=== PATIENT | female | born 1990 ===

== ENCOUNTER 2017-03-15 08:27 | Inpatient (IN) | payer MEDICAID, SELFPAY ==
[2017-03-15 08:59] VITALS: BMI 31.2
[2017-03-15] MEDS: Lactated Ringer's 1,000 ML IV SCH ×2 (09:15→10:15)
[2017-03-15] MEDS ORDERED: Lactated Ringer's 1,000 ML IV SCH (09:15)
[2017-03-15 09:32] LABS: BASO # 0.1 K/uL (0.0-0.2); BASO % 0.5 % (0.0-2.0); EOS # 0.1 K/uL (0.0-0.7); EOS % 0.9 % (0.0-4.0); HEMOGLOBIN 10.1 g/dL (12.0-16.0); LYMPH # 2.1 K/uL (1.0-4.3); MEAN CELL VOLUME 76.3 fl (81.0-99.0); MEAN CORPUSCULAR HEMOGLOBIN 24.5 pg (27.0-31.0); MEAN CORPUSCULAR HGB CONC 32.1 g/dL (33.0-37.0); MONO # 0.6 K/uL (0.0-0.8); MONO % 5.5 % (0.0-10.0); NEUT # 8.6 K/uL (1.8-7.0); NEUT % 75.1 % (50.0-75.0); RBC 4.11 Mil/uL (3.80-5.20); RED CELL DISTRIBUTION WIDTH 17.2 % (11.5-14.5); WHITE BLOOD COUNT 11.5 K/uL (4.8-10.8)
[2017-03-15] MEDS ORDERED: Oxytocin 30 UNITS in Sodium Chloride 0.9% 500 ML IV ONE (10:15)
[2017-03-15] MEDS ORDERED: Fentanyl/Bupivacaine HCl 250 ML EPI ONE ×2 (10:23→11:30)
[2017-03-15] MEDS ORDERED: Lidocaine 1% Inj (20ml) ONE (12:10)
[2017-03-15] MEDS ORDERED: Benzocaine/Menthol SPRAY TOP PRN ×2 (13:59→16:22)
--- NOTE | 2017-03-15 13:59 | OBDS ---
DELIVERY PERSONNEL Delivery Doctor: Odalys Posada MD Log Snaker: MBTammy/[email or web address]/[id number] Anesthesiologist: Dr Cr/Dr Mcclure Resident: Dr Sahni MATERNAL INFORMATION Delivery Anesthesia: Epidural Medications in Delivery: Pitocin 30 units in 0.9NS initially at 6 mu during labor and at Estimated Blood Loss (ml): 200 Placenta Cultured: No Maternal Complications: None Provider Comments: I was present at the delivery and I agree with the residents note. LABOR SUMMARY EDC: 03/08/2017 00:00 No. Babies in Womb: 1 LABOR INFORMATION Onset of Labor: 03/15/2017 10:17 Complete Dilatation: 03/15/2017 12:30 STAGES OF LABOR Stage 1 hrs: 2 Stage 1 min: 13 Stage 2 hrs: -167 Stage 2 min: -15 Stage 3 hrs: 168 Stage 3 min: 5 Total Time in Labor hrs: 3 Total Time in Labor min: 3 VAGINAL DELIVERY Laceration Extension: Second Degree Laceration Type: Perineal Laceration Repair: Yes Initial Vag Sponge Count: laps=5 with ring /1 without ring Final Vag Sponge Count: laps=5 with ring and 1 without ring Initial Vag Sharps Count: 3 Final Vag Sharps Count: 3 Sharps Count Correct: Yes Count Comment: correct and acknowledge BABY A INFORMATION Delivery Date/Time: 03/08/2017 13:15 Method of Delivery: Vaginal Born in Route : No : N/A Forceps: N/A Vacuum Extraction: N/A Shoulder Dystocia : No SHOULDER DYSTOCIA BABY A Infant Delivery Date/Time: 03/08/2017 13:15 PRESENTATION/POSITION BABY A Presentation: Cephalic Cephalic Presentation: Vertex Breech Presentation: N/A PLACENTA INFORMATION BABY A Placenta Delivery Time : 03/15/2017 13:20 Placenta Method of Delivery: Spontaneous Placenta Status: Delivered SCORES BABY A Heart Rate 1 min: >100 bpm Resp Effort 1 min: Good Cry Reflex Irritability 1 min: Cough or Sneeze or Pulls Away Muscle Tone 1 min: Active Motion Color 1 min: Body Victoria Vera, Extremities Blue Resuscitation Effort 1 min: Tactile Stimulation SCORE 1 MIN: 9 Heart Rate 5 min: >100 bpm Resp Effort 5 min: Good Cry Reflex Irritability 5 min: Cough or Sneeze or Pulls Away Muscle Tone 5 min: Active Motion Color 5 min: Body Victoria Vera, Extremities Blue Resuscitation Effort 5 min: N/A SCORE 5 MIN: 9 INFANT INFORMATION BABY A Gestational Age at Delivery: 41.0 Gestational Status: Post-term Outcome : Liveborn Infant Condition : Stable Sex: Female IDENTIFICATION/MEDS BABY A WEIGHT/LENGTH BABY A Infant Birthweight (gms): 3885 Weight (lb): 8 Weight (oz): 9 Length Inches: 21.50 Infant Length cms: 54.6 CORD INFORMATION BABY A No. Cord Vessels: 3 Nuchal Cord : N/A Nuchal Cord Other: n/a True Knot: n/a Cord pH Baby Arterial: n/a Infant Cord pH Baby Venous: n/a Cord Blood Taken: Yes Banking/Donate Info: n/a Suction: Mouth; Nose; Pharynx ASSESSMENT BABY A Infant Complications: None Physical Findings at Delivery: Within Normal Limits Infant Respirations: Appears Normal Planning Manager/ALS Called : No Care By: Konstantin/Zachary then Dr Gonzalez at 12:30 Transferred To: Remains with Mother
[2017-03-15] MEDS ORDERED: Influenza Vaccine 18yr & older 0.5 ML/45 MCG SYR IM ONE (17:57)
[2017-03-16 06:58] LABS: HEMOGLOBIN 7.4 g/dL (12.0-16.0); MEAN CELL VOLUME 76.8 fl (81.0-99.0); MEAN CORPUSCULAR HEMOGLOBIN 24.4 pg (27.0-31.0); MEAN CORPUSCULAR HGB CONC 31.8 g/dL (33.0-37.0); RBC 3.05 Mil/uL (3.80-5.20); RED CELL DISTRIBUTION WIDTH 16.8 % (11.5-14.5); WHITE BLOOD COUNT 14.3 K/uL (4.8-10.8)
[2017-03-17 06:40] LABS: BASO % 0.4 % (0.0-2.0); EOS # 0.2 K/uL (0.0-0.7); EOS % 2.2 % (0.0-4.0); HEMOGLOBIN 7.5 g/dL (12.0-16.0); LYMPH # 3.5 K/uL (1.0-4.3); LYMPH % 33.8 % (20.0-40.0); MEAN CELL VOLUME 77.2 fl (81.0-99.0); MEAN CORPUSCULAR HEMOGLOBIN 25.1 pg (27.0-31.0); MEAN CORPUSCULAR HGB CONC 32.5 g/dL (33.0-37.0); MEAN PLATELET VOLUME 8.2 fl (7.2-11.7); MONO # 0.8 K/uL (0.0-0.8); NEUT # 5.8 K/uL (1.8-7.0); NEUT % 55.6 % (50.0-75.0); RBC 2.99 Mil/uL (3.80-5.20); RED CELL DISTRIBUTION WIDTH 17.3 % (11.5-14.5); WHITE BLOOD COUNT 10.4 K/uL (4.8-10.8)
--- NOTE | 2017-03-17 10:19 | OBPPN ---
Datetime: 03/17/2017 06:16 PP Pain Prov: Within normal limits PP Nausea Prov: Denies PP Flatus Prov: Yes PP BM Prov: Yes PP Breasts Prov: Not Done PP Heart Prov: Normal PP Lungs Prov: Normal PP Abdomen/Uterus Prov: Normal PP Lochia Prov: Normal PP Vulva/Perineum Prov: Not Done PP CVA Tenderness Prov: Not Done PP Extremities Prov: Normal PP C/S Incision Prov: Not Applicable PP Progress Prov: Normal PP Impression Prov: Normal progression PP Plan Prov: Discharge PP Progress Note Prov: S: 27 yo s/p NVD. Pt. is seen and examined at bedside this morning. N o overnight events. Pt reports occasional abdominal pain, but well controlled with pain meds. Pt is a mbulating without any difficulties. Breast/bottle feeding baby. Tolerating PO diet. Lochia is similar to light menses in volume. Voiding freely, +BM. Denies fever/chills, diarrhea, nausea/vomiting, ches t pain, dyspnea, and dizziness. VS: stable Gen: NAD Cardio: s1s2, no m/r/g Resp: clear breath sounds b/l Abdomen: BS+, NT, Uterus is firm and at the level of the umbilicus. EXT: No edema, calves nontender Neuro/Psych: AAOx3, no grossly focal deficit, preserved affect and mood. A/P: 27 yo s/p NVD. Pt remains afebrile, tolerating pain with medication, doing well on PP D 2. OOB with caution. SCDs for DVT prophylaxis, pt ambulating Ibuprofen 600mg for pain. Colace 100mg PO BID for constipation. Iron 325mg PO TID for anemia Encourage . PP CBC: 7.4/23.4 Discharge today. YBecerra PGY [address] Montero: Patient evaluated independently and I agree with the above. Patient for dis charge, discharge instructions reviewed IP PP Procedures: None Vital Signs Provider PP: Reviewed; Within Normal Limits
--- NOTE | 2017-03-17 10:19 | OBDCSUM ---
Datetime: 03/17/2017 06:18 Discharged to, Provider: Home Follow up at, Provider: Dr Willis Disch Instr Activity: Normal activity Disch Instr Diet: Regular Discharge Instructions, Provider: Routine instructions given Discharge Diagnosis, Provider: Term Delivered Discharge Time: 03/17/2017 10:00 Follow up in weeks, Provider: 6 weeks Disch Referrals: None Contraception discussed, Prov: Yes Disch Activity Restrictions: No lifting; Minimize walking; Minimize stair-climbing; No sexual activi ty; Nothing in vagina - [place], tampons, douche Discharge Comment, Provider: DOA: 03/15/2017 EGA: 41.0 weeks Diagnosis: PRisk factors: none Summary of : L_D summary: DOL: 03/15/2017 at 13:15 NB: F : 9/9 Weight: 3885 g PP summary: No serious complications during PP. Lochia= menses, mild pain, controlled with medications Rubella immune Blood type: O+ CBC pp: 7.4/23.4 Discharge Date: 03/17/2017 at 10 am Discharge Instructions: -encourage -Ibuprofen for pain -Colace for constipation -Iron for anemia. -Ambulate as tolerated -f/u NB visit and PP visit Contraception after Delivery: Not Planning to Use
[2017-03-17 15:57] VITALS: BP 123/68; PULSE 101; RESP 20; TEMP 98.1; O2SAT 99
== END 2017-03-17 11:35 | disposition home or self-care (01) | DRG 775 ==
LOC: H.EROB2 08:27 → H.L&D 08:49 → H.OB/GYN 16:00
PROVIDERS: ADMIT Obstetrics & Gynecology Gynecology; ATTEND Obstetrics & Gynecology Gynecology
PROC: 10E0XZZ Delivery of Products of Conception, External Approach (ICD-10-PCS; principal; 2017-03-15)
PROC: 0KQM0ZZ Repair Perineum Muscle, Open Approach (ICD-10-PCS; 2017-03-15)
PROC: 4A1HXCZ Monitoring of Products of Conception, Cardiac Rate, External Approach (ICD-10-PCS; 2017-03-15)
DX: O48.0 Post-term pregnancy (principal); O70.1 Second degree perineal laceration during delivery; Z37.0 Single live birth; Z3A.41 41 weeks gestation of pregnancy

== ENCOUNTER 2017-12-12 19:21 | Emergency (ER) | payer SELFPAY ==
[2017-12-12 19:22] VITALS: BMI 31.2
[2017-12-12 20:23] VITALS: RESP 16; TEMP 98.3; O2SAT 99
--- NOTE | 2017-12-12 21:04 | ED PDOC ---
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 Patient is also complaining of nausea and chills but no fever. She states she vomited 3 times last night and 2 times today. Denies getting a flu shot. PMD: none Past Medical History Reviewed: Historical Data, Nursing Documentation, Vital Signs Vital Signs: Last Vital Signs Temp 98.3 F 12/12/17 20:20 Pulse 96 H 12/12/17 20:20 Resp 16 12/12/17 20:20 BP 114/72 12/12/17 20:20 Pulse Ox 99 12/12/17 20:20 - Medical History PMH: No Chronic Diseases Denies: Depression, Diabetes, HTN - Surgical History Surgical History: No Surg Hx - Family History Family History: States: Unknown Family Hx - Social History Current smoker - smoking cessation education provided: No Alcohol: None Drugs: Denies - Immunization History Hx Tetanus Toxoid Vaccination: No Hx Influenza Vaccination: No Hx Pneumococcal Vaccination: No - Home Medications Home Medications: Ambulatory Orders Medication Instructions Recorded No Known Home Med 08/11/14 - Allergies Allergies/Adverse Reactions: Allergies Allergy/AdvReac Type Severity Reaction Status Date / Time No Known Allergies Allergy Verified 12/12/17 20:20 Review of Systems ROS Statement: Except As Marked, All Systems Reviewed And Found Negative Constitutional: Positive for: Chills. Negative for: Fever Gastrointestinal: Positive for: Nausea, Vomiting Musculoskeletal: Positive for: Leg Pain, Other (Generalized body pain) Neurological: Positive for: Headache, Dizziness Physical Exam - Reviewed Nursing Documentation Reviewed: Yes Vital Signs Reviewed: Yes - Physical Exam Appears: Positive for: Non-toxic, No Acute Distress Head Exam: Positive for: ATRAUMATIC, NORMAL INSPECTION, NORMOCEPHALIC Skin: Positive for: Normal Color, Warm, Dry. Negative for: Rash Eye Exam: Positive for: EOMI, Normal appearance, PERRL ENT: Positive for: Normal ENT Inspection Neck: Positive for: Normal, Painless ROM, Supple. Negative for: Decreased ROM Cardiovascular/Chest: Positive for: Regular Rate, Rhythm. Negative for: Murmur Respiratory: Positive for: Normal Breath Sounds. Negative for: Decreased Breath Sounds, Wheezing, Respiratory Distress Gastrointestinal/Abdominal: Positive for: Normal Exam, Soft. Negative for: Tenderness, Guarding, Rebound Back: Positive for: Normal Inspection. Negative for: L CVA Tenderness, R CVA Tenderness Extremity: Positive for: Normal ROM. Negative for: Tenderness, Pedal Edema, Deformity Neurologic/Psych: Positive for: Alert, Oriented (x3). Negative for: Motor/Sensory Deficits - Laboratory Results Result Diagrams: 12/12/17 22:10 12/12/17 22:10 - ECG O2 Sat by Pulse Oximetry: 99 (RA) Pulse Ox Interpretation: Normal Medical Decision Making Medical Decision Making: Initial Impression: Generalized body pain, vomiting, and dizziness Initial Plan: CMP ED urine dipstick CBC Sodium chloride 1000mL iV Pepcid 20mg IV Zofran 4 mg IV Reevaluation Patient has elevated WBC and CT ordered. Time: 58 CT SCAN OF THE BRAIN WITHOUT IV CONTRAST CLINICAL INDICATION: Headache. TECHNIQUE: Axial and reformatted sagittal and coronal images of the brain obtained without IV contrast administration. Normal size of the ventricles and extra-axial spaces for the patient's age. Normal white matter tracts of the supratentorial brain. Normal basal ganglia and thalami. Normal brainstem. Normal cerebellum. There is no demonstrated extra-axial, intraparenchymal, or intraventricular hemorrhage. There are no findings of an acute ischemic infarction. Normal calvarium. There is no demonstrated fracture. Normal soft tissue structures. Normal visualized paranasal sinuses. IMPRESSION: Normal unenhanced CT scan of the brain Time: 015 CT SCAN OF THE ABDOMEN AND PELVIS WITHOUT ORAL OR IV CONTRAST. CLINICAL INDICATION: Pain. TECHNIQUE: Axial and reformatted sagittal and coronal images of the abdomen pelvis obtained without IV contrast administration. COMPARISON: None. FINDINGS: The visualized lung bases are unremarkable. Normal unenhanced liver. Normal gallbladder and extrahepatic biliary system. Normal unenhanced spleen. Normal pancreas. Normal bilateral adrenal glands. Normal size of the right kidney. There is no right renal mass. There are no right renal calculi. There is no right hydronephrosis. Normal visualized right ureter. Normal size of the left kidney. There is no left renal mass. There are no left renal calculi. There is no left hydronephrosis. Normal visualized left ureter. Normal visualized stomach. Normal small intestine. Uncomplicated diverticulosis and mild amount of fecal residue in the colon. Mild amount of fecal residue in the large bowels. The appendix is visualized and appears normal. There is no demonstrated peritoneal fluid. Normal abdominal aorta. Normal inferior vena cava. Normal retroperitoneum. Normal urinary bladder. There is no pelvic mass lesion or lymphadenopathy. There is no pelvic fluid. Normal abdominal wall. Normal osseous structures. IMPRESSION: Mild amount of fecal residue in the large bowels. Upon provider reevaluation patient is feeling better, is medically stable, and requires no further treatment in the ED at this time. Patient will be discharged home. Counseling was provided and all questions were answered regarding diagnosis and need for follow up with PMD. There is agreement to discharge plan. Return if symptoms persist or worsen. Scribe Attestation: Documented by Gilmar Sherman and Carmen Vilchis acting as scribes for Kaila Cole MD. Provider Scribe Attestation: All medical record entries made by the Scribe were at my direction and personally dictated by me. I have reviewed the chart and agree that the record accurately reflects my personal performance of the history, physical exam, medical decision making, and the department course for this patient. I have also personally directed, reviewed, and agree with the discharge instructions and disposition. Disposition - Clinical Impression Clinical Impression: Viral illness - Patient ED Disposition Is Patient to be Admitted: No - Disposition Referrals: [facility] [Outside] [facility] [Outside] Disposition: Routine/Home Disposition Time: 02:28 Condition: IMPROVED Additional Instructions: follow up with your doctor in 1-2 days return to the ED with any worsening or concerning symptoms Instructions: Viral Syndrome (DC) Forms: [facility] (German), [facility] (Romanian) Print Language: GREENLANDIC
[2017-12-12] MEDS: Sodium Chloride 0.9% 1,000 ML IV STA (22:06)
[2017-12-12 22:27] LABS: BASO # 0.1 K/uL (0.0-0.2); BASO % 0.6 % (0.0-2.0); EOS # 0.2 K/uL (0.0-0.7); HEMOGLOBIN 12.5 g/dL (12.0-16.0); LYMPH # 3.9 K/uL (1.0-4.3); LYMPH % 31.6 % (20.0-40.0); MEAN CELL VOLUME 84.6 fl (81.0-99.0); MEAN CORPUSCULAR HEMOGLOBIN 28.8 pg (27.0-31.0); MEAN PLATELET VOLUME 8.2 fl (7.2-11.7); MONO # 1.1 K/uL (0.0-0.8); MONO % 8.5 % (0.0-10.0); NEUT # 7.1 K/uL (1.8-7.0); NEUT % 57.3 % (50.0-75.0); RBC 4.35 Mil/uL (3.80-5.20); WHITE BLOOD COUNT 12.4 K/uL (4.8-10.8)
[2017-12-12 22:32] LABS: ALB/GLOB RATIO 1.1 (1.0-2.1); ALBUMIN 4.4 g/dL (3.5-5.0); ALT/SGPT 33 U/L (9-52); AST/SGOT 21 U/L (14-36); BLOOD UREA NITROGEN 10 mg/dl (7-17); CALCIUM 9.8 mg/dL (8.4-10.2); GFR NON-AFRICAN AMERICAN > 60
[2017-12-13 10:34] VITALS: BP 103/57; PULSE 83
--- NOTE | 2017-12-13 11:22 | CT ---
Date of service: 12/13/2017 PROCEDURE: CT Abdomen and Pelvis without intravenous contrast HISTORY: Headache, dizziness and vomiting. COMPARISON: None. TECHNIQUE: Unenhanced. Neither IV nor oral contrast administered Radiation dose: Total exam DLP = 299.57 mGy-cm. This CT exam was performed using one or more of the following dose reduction techniques: Automated exposure control, adjustment of the mA and/or kV according to patient size, and/or use of iterative reconstruction technique. FINDINGS: LOWER THORAX: Unremarkable. LIVER: Unremarkable. No gross lesion or ductal dilatation. GALLBLADDER AND BILE DUCTS: Unremarkable. PANCREAS: Unremarkable. No gross lesion or ductal dilatation. SPLEEN: Unremarkable. ADRENALS: Unremarkable. No mass. KIDNEYS AND URETERS: Unremarkable. No hydronephrosis. No solid mass. VASCULATURE: Unremarkable. No aortic aneurysm. No atherosclerotic calcification or mural plaque present. BOWEL: Unremarkable. No obstruction. No gross mural thickening. APPENDIX: A normal appendix is visualized in it's entirety. PERITONEUM: Unremarkable. No free fluid. No free air. LYMPH NODES: Unremarkable. No enlarged lymph nodes. BLADDER: Unremarkable. REPRODUCTIVE: Unremarkable. BONES: No acute fracture. OTHER FINDINGS: None. IMPRESSION: Unremarkable non contrast enhanced CT of the abdomen and pelvis. Concordant results (preliminary interpretation) provided by [employer]. Procedure Completed: 00:09 Preliminary Report: Dictated and Authenticated: 01:59. Final Interpretation: 07:15. December 13, 2017
--- NOTE | 2017-12-13 11:23 | CT ---
Date of service: 12/13/2017 PROCEDURE: CT HEAD WITHOUT CONTRAST. HISTORY: headache COMPARISON: None available. TECHNIQUE: Axial computed tomography images were obtained through the head/brain without intravenous contrast. Supplemental Coronal and Sagittal projections created and reviewed. Radiation dose: Total exam DLP = 703.50 mGy-cm. This CT exam was performed using one or more of the following dose reduction techniques: Automated exposure control, adjustment of the mA and/or kV according to patient size, and/or use of iterative reconstruction technique. FINDINGS: HEMORRHAGE: No intracranial hemorrhage. BRAIN: No mass effect or edema. No atrophy or chronic microvascular ischemic changes. VENTRICLES: Unremarkable. No hydrocephalus. CALVARIUM: Unremarkable. PARANASAL SINUSES: Unremarkable as visualized. No significant inflammatory changes. MASTOID AIR CELLS: Unremarkable as visualized. No inflammatory changes. OTHER FINDINGS: None. IMPRESSION: No acute intracranial abnormalities. No significant findings to account for the clinical presentation. Concordant results (preliminary interpretation) provided by [email or web address]. Procedure Completed: 00:22. Preliminary Report: Dictated and Authenticated: 00:59. Final Interpretation: 11:19. December 13, 2017
== END 2017-12-13 02:26 | disposition home or self-care (01) ==
LOC: H.ER 19:21
DX: B34.9 Viral infection, unspecified (principal)
CPT/HCPCS: 70450; 74176; 80053; 81025; 85025; 87804; 96361; 96374; 96375; 99284; J2405; J7030